=== PATIENT | female | born 1995 | race Caucasian/White ===

== ENCOUNTER 2017-10-08 09:51 | Outpatient (CLI) | END 2017-10-08 18:40 | disposition home or self-care (01) ==

== ENCOUNTER 2017-10-09 14:35 | Outpatient (CLI) | END 2017-10-09 17:10 | disposition home or self-care (01) ==

== ENCOUNTER 2017-11-25 14:37 | Outpatient (CLI) | END 2017-11-25 15:45 | disposition home or self-care (01) ==

== ENCOUNTER 2017-11-30 15:28 | Outpatient (CLI) | END 2017-11-30 20:47 | disposition home or self-care (01) ==

== ENCOUNTER 2017-12-03 15:57 | Outpatient (CLI) | END 2017-12-03 17:50 | disposition home or self-care (01) ==

== ENCOUNTER 2017-12-10 15:47 | Outpatient (CLI) | END 2017-12-10 18:25 | disposition home or self-care (01) ==

== ENCOUNTER 2017-12-15 15:23 | Outpatient (CLI) | END 2017-12-15 17:30 | disposition home or self-care (01) ==

== ENCOUNTER 2017-12-18 07:39 | Inpatient (IN) | END 2017-12-20 14:50 | disposition home or self-care (01) | DRG 775 ==